=== PATIENT | female | born 1960 | race Hispanic/Latino ===

== ENCOUNTER 2018-03-13 02:07 | Emergency (ER) | payer BC, SELFPAY ==
[2018-03-13 02:47] LABS: #Basophils 0.1 thou/uL (0.0-0.2); #Eosinphils 0.3 thou/uL (0.0-0.7); #Lymphocytes 4.2 thou/uL (1.20-3.40); #Monocytes 0.7 thou/uL (0.11-0.59); #Neutrophils 4.8 thou/uL (1.40-6.50); %Basophils 1.3 % (0.0-1.0); %Eosinophils 2.5 % (0.0-10.0); %Lymphocytes 41.8 % (21.0-51.0); %Monocytes 7.2 % (0.0-10.0); %Neutrophils 47.3 % (42.0-75.0); Hemoglobin 13.7 g/dL (12.0-16.0); Mean Corpuscular HGB CONC 34.7 g/dL (32.0-36.0); Mean Corpuscular Hemoglobin 30.1 pg (27.0-31.0); Mean Corpuscular Volume 86.6 fl (81.0-99.0); Mean Platelet Volume 6.3 fL (7.4-10.4); Platelet Count 365 thou/uL (130-400); RBC Distribution Width 12.1 % (11.5-14.5); Red Blood Cell (RBC) Count 4.55 mill/uL (4.20-5.40); White Blood Cell (WBC) Count 10.1 thou/uL (4.8-10.8)
[2018-03-13 02:52] LABS: Bilirubin Negative (Negative); Blood, Urine Negative (Negative); Clarity CLEAR (Clear); Glucose, Urine (Dipstick) >=1000 mg/dL (Negative); Leukocyte Negative (Negative); Nitrite Negative (Negative); Protein, Urine (Dipstick) Negative (Neg-Trace); Urobilinogen 0.2 mg/dL (0.2-1.0); pH, Urine 5.5 (5.0-9.0)
[2018-03-13 03:07] LABS: ALT (SGPT) 26 U/L (8-55); AST (SGOT) 27 U/L (5-34); Albumin 4.2 g/dL (3.5-5.0); Alkaline Phosphatase 105 U/L (40-150); Anion Gap 14 mmol/L (10-20); BUN (Urea Nitrogen) 14 mg/dL (9.8-20.1); Bilirubin, Total 0.3 mg/dL (0.2-1.2); Calc. Creatinine Clearance 0 mL/min (70-130); Calcium 9.1 mg/dL (7.8-10.44); Carbon Dioxide 28 mmol/L (22-29); Chloride 100 mmol/L (98-107); Estimated GFR-MDRD 82; Globulin 3.2 g/dL (2.4-3.5); Glucose 283 mg/dL (70-105); Potassium 4.2 mmol/L (3.5-5.1); Protein, Total 7.4 g/dL (6.0-8.3); Sodium 138 mmol/L (136-145)
[2018-03-13] MEDS ORDERED: Morphine 10 MG/ML VIAL ONE (03:40)
[2018-03-13] MEDS ORDERED: Ondansetron ODT 8 MG TAB ONE (03:40)
[2018-03-13] MEDS ORDERED: predniSONE 20 MG TAB ONE ×2 (05:21→05:25)
[2018-03-13] MEDS ORDERED: Albuterol Sulfate 2.5 mg/3 ml Neb ONE ×2 (05:22→05:59)
--- NOTE | 2018-03-13 09:46 | CT ---
PRELIMINARY REPORT/[facility]/EMERGENTY AFTER-HOURS PROCEDURE CT Abdomen and Pelvis With Intravenous Contrast CLINICAL HISTORY: 57 years old, female; Pain; Abdominal pain; Generalized; Patient HX: 57 yo f. Pt presents with abdomi nal pain most severe with cough, x3 days. Denies n/v/d, urinary C/O. Pt reports cough ongoing x3 days with subjective fever, and noticed wheezing noise when breathing at home. TECHNIQUE: Axial computed tomography images of the abdomen and pelvis with intravenous contrast. Coronal reforma tted images were created and reviewed. COMPARISON: No relevant prior studies available. FINDINGS: Lung bases: Minimal RIGHT basilar atelectasis simple renal cysts. ABDOMEN: Liver: Unremarkable. No mass. Gallbladder and bile ducts: Questionable tiny gallstone. No ductal dilation. Pancreas: Unremarkable. No mass. No ductal dilation. Spleen: Unremarkable. No splenomegaly. Adrenals: Unremarkable. No mass. Kidneys and ureters: Unremarkable. No solid mass. No hydronephrosis. Stomach and bowel: Minimally dilated small bowel in the RIGHT lower quadrant with 2 transition areas are there is an no evidence of mesenteric edema. PELVIS: Appendix: No findings to suggest acute appendicitis. Bladder: Unremarkable. No mass. Reproductive: Unremarkable as visualized. ABDOMEN and PELVIS: Intraperitoneal space: Unremarkable. No free air. No significant fluid collection. Bones/joints: No acute fracture. No dislocation. Soft tissues: Unremarkable. Vasculature: Unremarkable. No abdominal aortic aneurysm. Lymph nodes: Unremarkable. No enlarged lymph nodes. IMPRESSION: Indeterminate area of small bowel RIGHT lower quadrant which is minimally distended and fluid filled with 2 discrete low-grade transition areas. No evidence of wall thickening or signs of ischemia. Although unlikely, developing closed-loop small bowel obstruction could not be conclusively ruled out and further workup and surgical consultation should be based on clinical symptoms and exam Thank you for allowing us to participate in the care of your patient. Dictated and Authenticated by: Johnathon Lopez MD 03/13/2018 5:02 AM Central Time ([place] & [place]) FINAL REPORT CT ABDOMEN AND PELVIS WITH CONTRAST: Date: 03/13/18 HISTORY: Abdominal pain, coughing. COMPARISON: None. FINDINGS: Mild nodular infiltrate in the right lung base superior segment incompletely evaluated. There is mild hyper enhancement of mucosa of distal and terminal ileum. The appendix is visualized an d is normal. No free intraperitoneal gas or fluid. Aortoiliac contour is normal. There are bilateral polycystic ki dneys. IMPRESSION: 1. Mild hyper enhancement of the mucosa of the distal ileum without dilatation suggesting enteritis. 2. Normal appendix. 3. Polycystic kidneys. Follow-up ultrasound in 6 months recommended to evaluate for underlying solid component of any of these cysts. Some of these cysts are close together and have the appearance of s eptations. POS: OFF
[2018-03-13] MEDS ORDERED: ISOVUE-370 76%-LOCM 1 ML ONE (15:10)
== END 2018-03-13 06:31 | disposition home or self-care (01) ==
LOC: ERS 02:07
DX: S39.011A Strain of muscle, fascia and tendon of abdomen, initial encounter (principal); J40 Bronchitis, not specified as acute or chronic; K43.9 Ventral hernia without obstruction or gangrene; I10 Essential (primary) hypertension; X58.XXXA Exposure to other specified factors, initial encounter
CPT/HCPCS: 36415; 74177; 80053; 81003; 85025; 94640; 96374; J2270; J7506; J7611; J7620

== ENCOUNTER 2019-11-26 14:25 | Outpatient (CLI) | payer BC ==
--- NOTE | 2019-11-26 15:00 | RAD ---
LUMBAR SPINE 2 VIEWS: Date: 11/26/2019 HISTORY: Low back pain. Compression fracture. FINDINGS: No comparison. There are five lumbar-type vertebrae. Pedicles are intact. Overlying brace material obscures detail o n the frontal view. There is compression of the anterior aspect of the L1 vertebral body with loss of height anteriorly b y approximately 30%. No retropulsion. Other vertebral body heights are maintained. Mild osteophytosis , most pronounced at the lower facets. IMPRESSION: Compression fracture of the L1 vertebral body without retropulsion. Age-indeterminate. POS: TPC
== END 2019-11-26 14:26 | disposition home or self-care (01) ==
LOC: TBSIIMAG 14:25
PROVIDERS: ATTEND Surgery
DX: M54.5 Low back pain (principal)
CPT/HCPCS: 72100

== ENCOUNTER 2020-06-03 10:40 | Outpatient (CLI) | payer OTHER ==
--- NOTE | 2020-06-03 11:23 | RAD ---
LUMBAR SPINE 2 VIEWS: INDICATION: Low back pain. COMPARISON: Comparison is made to lumbar films of 11/26/2019. FINDINGS: The anterior wedge compression of the L1 vertebra is again seen. Loss of central and anterior height is noted. The degree of anterior compression appears to have progressed slightly since 11/26/2019. Loss of disk space at T12-L1 and at L1-2 again noted. The lumbar vertebrae below L1 maintain height and alignment. Mild degenerative spurring. IMPRESSION: Anterior wedge compression of L1 is again noted. Slight progression of the anterior compression defo rmity when compared to 11/26/2019. POS: AH
== END 2020-06-03 10:41 | disposition home or self-care (01) ==
LOC: TBSIIMAG 10:40
PROVIDERS: ATTEND Surgery
DX: M54.5 Low back pain (principal)
CPT/HCPCS: 72100

== ENCOUNTER 2022-03-22 08:52 | Outpatient (CLI) | payer OTHER | END 2022-03-22 08:53 | disposition home or self-care (01) | LOC: ULT 08:52 | PROVIDERS: ATTEND Nurse Practitioner Family | DX: R19.05 Periumbilic swelling, mass or lump (principal) | CPT/HCPCS: 76705 ==

== ENCOUNTER 2022-03-31 07:19 | Outpatient (CLI) | payer OTHER ==
[2022-03-31 08:26] LABS: Estimated GFR-MDRD - POC Greater than 90
[2022-03-31] MEDS ORDERED: Iopamidol 370 76% 100 ML VIAL ONE (15:59)
== END 2022-03-31 07:20 | disposition home or self-care (01) ==
LOC: CT 07:19
PROVIDERS: ATTEND Nurse Practitioner Family
DX: K43.9 Ventral hernia without obstruction or gangrene (principal); N28.1 Cyst of kidney, acquired
CPT/HCPCS: 74177; 82565